=== PATIENT | female | born 1985 | race Two or more races ===

== ENCOUNTER 2022-06-26 15:17 | Emergency (ER) | payer MEDICAID ==
[~2022-06-26] VITALS: Ht 170.2 cm; Wt 66.7 kg
[2022-06-26 16:09] LABS: BASOPHILS % (AUTO) 0.6 % (0.0-2.0); EOSINOPHILS % (AUTO) 1.8 % (0.0-6.0); HEMATOCRIT 29 % (33-45); HEMOGLOBIN 8.6 g/dL (11.5-14.8); LYMPHOCYTES % (AUTO) 62.9 % (20.0-44.0); MEAN CORPUSCULAR HGB CONC 29 g/dl (31.0-36.0); MEAN CORPUSCULAR VOLUME 63 fL (82-100); MONOCYTES # (AUTO) 0.2 K/uL (0.1-1.30); MONOCYTES % (AUTO) 6.4 % (2.0-12.0); NEUTROPHILS # (AUTO) 0.9 K/uL (1.8-8.9); NEUTROPHILS % (AUTO) 28.3 % (43.0-81.0); PLATELET COUNT (AUTO) 359 K/uL (150-450); WHITE BLOOD COUNT (AUTO) 3.2 K/uL (4.3-11.0)
[2022-06-26 16:45] LABS: CALCIUM, SERUM 9.1 mg/dL (8.5-10.1); CARBON DIOXIDE 26 mmol/L (21-32); CHLORIDE 103 mmol/L (98-107); CREATININE 0.8 mg/dL (0.6-1.3); GLUCOSE 97 mg/dL (74-106); POTASSIUM 3.7 mmol/L (3.5-5.1); SODIUM SERUM 138 mmol/L (136-145); UREA NITROGEN, BLOOD 13 mg/dL (7-18)
--- NOTE | 2022-06-26 16:54 | NUR ---
urine sample collected and sent to lab.
--- NOTE | 2022-06-26 17:27 | NUR ---
PER LAW NO NEED TO REPEAT THE TROPONIN.
--- NOTE | 2022-06-26 17:36 | NUR ---
The patient is alert and oriented x4. Denies pain. In room air and denies SOB. Respiration regular and unlabored. IV removed. Catheter intact and site benign. Pressure and 4x4 applied to site. No bleeding noted.Patient discharged to home in stable condition. Written and verbal after care instructions given. Patient verbalizes understanding of instruction.
[2022-06-26 17:37] VITALS: BP 126/70
[2022-06-26 18:16] LABS: EOSINOPHILS % (MANUAL) 4 % (0-4); LYMPHOCYTES % (MANUAL) 34 % (16-48); MONOCYTES % (MANUAL) 6 % (0-11.0); NEUTROPHILS % (MANUAL) 52 (42-76); REACTIVE LYMPHOCYTES 4 % (0-0)
== END 2022-06-26 17:37 | disposition home or self-care (01) ==
LOC: ER 15:32
DX: R07.9 Chest pain, unspecified (principal); Z60.2 Problems related to living alone
CPT/HCPCS: 36415; 71045-TC; 80048-TC; 83880; 84484-TC; 85025-TC; 85378-TC

== ENCOUNTER 2022-12-22 19:35 | Emergency (ER) | payer MEDICAID ==
[~2022-12-22] VITALS: Ht 170.2 cm; Wt 72.6 kg
[2022-12-22 20:37] VITALS: BP 126/92; TEMP 98.1; O2SAT 96
== END 2022-12-22 21:17 | disposition left against medical advice (07) ==
LOC: ER 19:41
DX: R71.0 Precipitous drop in hematocrit (principal); Z53.21 Procedure and treatment not carried out due to patient leaving prior to being seen by health care provider